=== PATIENT | male | born 1965 | race Caucasian/White ===

== ENCOUNTER 2016-07-16 00:27 | Emergency (ER) | payer SELFPAY ==
[2016-07-16] MEDS ORDERED: SODIUM CHLORIDE 0.9% (FLUSH) 10 ML SYG IV PRN (00:43)
[2016-07-16] MEDS ORDERED: SODIUM CHLORIDE 0.9% 1000ML 1,000 ML IVS PRN (00:43)
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
[2016-07-16] MEDS ORDERED: chlordiazePOXIDE HCL 25 MG CAP PO ONE ×2 (01:31→01:42)
[2016-07-16] MEDS ORDERED: POTASSIUM CHLORIDE 20 MEQ TAB PO ONE (01:35)
[2016-07-16 02:47] VITALS: BP 115/66; TEMP 98.5; O2SAT 96
== END 2016-07-16 02:47 | disposition home or self-care (01) ==
LOC: ER 00:27
DX: F10.232 Alcohol dependence with withdrawal with perceptual disturbance (principal); E87.6 Hypokalemia; E87.1 Hypo-osmolality and hyponatremia; I10 Essential (primary) hypertension; Z87.891 Personal history of nicotine dependence; Z79.899 Other long term (current) drug therapy
CPT/HCPCS: 36415; 80053; 80307; 80320; 81001; 85025; 87086; J2060; J7030

== ENCOUNTER 2017-01-01 22:09 | Emergency (ER) | payer SELFPAY ==
[2017-01-01] MEDS ORDERED: SODIUM CHLORIDE 0.9% 1000ML 1,000 ML IVS ONE (22:41)
--- NOTE | 2017-01-01 22:45 | ED.PDOC ---
History of Present Illness - General Chief Complaint: Trauma Stated Complaint: fall at work, head injury Time Seen by Provider: 01/01/17 22:40 Source: patient Exam Limitations: no limitations Additional Information: PT STATES HE TRIPPED AT WORK HOWEVER IS A KNOWN ALCOHOLIC AND STOPPED DRINKING 3 DAYS AGO. - History of Present Illness Timing/Duration: other - [employer] Severity: moderate Improving Factors: nothing Worsening Factors: nothing Associated Symptoms: other - PT HAS HAD ONE SZ PRIOR AFTER STOPPING ETOH Allergies/Adverse Reactions: Allergies NO KNOWN ALLERGY Allergy (Verified 01/01/17 22:20) Home Medications: Ambulatory Orders Hydrochlorothiazide 25 mg PO DAILY 07/16/16 LORazepam [Ativan] 1 mg PO BID PRN #12 tab 07/16/16 Potassium Chloride [K-Tab] 20 meq PO DAILY #5 tab 07/16/16 chlordiazePOXIDE HCL [Librium] 50 mg PO TID #30 cap 07/16/16 Review of Systems - Review of Systems Constitutional: Denies: chills, fever EENTM: States: other - SWELLING TO HEAD. Denies: blurred vision, ear discharge Respiratory: Denies: cough, short of breath Cardiology: Denies: chest pain, palpitations Gastrointestinal/Abdominal: Denies: abdominal pain, nausea, vomiting Genitourinary: States: other - URINARY INCONTINENCE Musculoskeletal: Denies: back pain, neck pain Skin: States: other - ABRASION, SWELLING Neurological: States: headache, seizure. Denies: numbness, weakness Endocrine: States: no symptoms reported Hematologic/Lymphatic: States: no symptoms reported Past Medical History (General) - Patient Medical History Hx Seizures: Yes Hx Stroke: No Hx Dementia: No Hx Asthma: No Hx of COPD: No Hx Cardiac Disorders: No Hx Congestive Heart Failure: No Hx Pacemaker: No Hx Hypertension: Yes Hx Thyroid Disease: No Hx Diabetes: No Hx Gastroesophageal Reflux: No Hx Renal Disease: No Hx Cancer: No Hx of HIV: No Hx Hepatitis C: No Hx MRSA: No - Vaccination History Hx Tetanus, Diphtheria Vaccination: No Hx Influenza Vaccination: No Hx Pneumococcal Vaccination: No - Social History Hx Tobacco Use: Yes Hx Chewing Tobacco Use: No Hx Alcohol Use: Yes Hx Substance Use: Yes Hx Substance Use Treatment: No Hx Depression: No Hx Physical Abuse: No Hx Emotional Abuse: No Hx Suspected Abuse: No Family Medical History - Family History Mother Family History: Unknown Hx Family Hypertension: Yes Hx Family Diabetes: Yes Physical Exam - Physical Exam General Appearance: Alert, Comfortable, No apparent distress Eye Exam: bilateral normal Ears, Nose, Throat: hearing grossly normal, normal ENT inspection, normal pharynx, other - SWELLING, R POST OCCIPUT, ABRASION, MILD OOZING, NO LACERATION Neck: non-tender, full range of motion, supple Respiratory: lungs clear, normal breath sounds Cardiovascular/Chest: no murmur, tachycardia Gastrointestinal/Abdominal: normal bowel sounds, non tender, soft, no organomegaly Back Exam: normal inspection, no CVA tenderness Extremity: normal range of motion, non-tender, normal inspection, no pedal edema Skin Exam: normal color, warm/dry Lymphatic: no adenopathy Progress - EKG/XRAY/CT CT: HEAD/C-SPINE SASCHA Departure - Departure Clinical Impression: Alcoholic, Hypokalemia, Seizure Hematoma of scalp Qualifiers: Encounter type: initial encounter Qualified Code(s): S00.03XA - Contusion of scalp, initial encounter Time of Disposition: 00:22 Disposition: Discharge to Home or Self Care Condition: Fair Departure Forms: ED Discharge - Pt. Copy, Patient Portal Self Enrollment Instructions: DI for Trauma, DI for Seizure (Not Epilepsy/Seizure Disorder), Head Injury (Alternative Therapy) Referrals: Sandip Carrillo MD [Primary Care Provider] - 1-2 Weeks Home Medications: Ambulatory Orders Hydrochlorothiazide 25 mg PO DAILY 07/16/16 LORazepam [Ativan] 1 mg PO BID PRN #12 tab 07/16/16 Potassium Chloride [K-Tab] 20 meq PO DAILY #5 tab 07/16/16 chlordiazePOXIDE HCL [Librium] 50 mg PO TID #30 cap 07/16/16
--- NOTE | 2017-01-01 23:38 | CT ---
EXAM DESCRIPTION: Head CLINICAL HISTORY: HEAD TRAUMA COMPARISON: None available TECHNIQUE: Axial CT of the head obtained from the skull apex to the skull base without contrast. FINDINGS: No acute intracranial hemorrhage identified. No mass, mass effect, shift of the midline, abnormal extra-axial fluid collection or CT evidence of acute ischemic change identified. The ventricular system is unremarkable. No acute abnormalities of the supratentorial white matter, basal ganglia, cerebellum, or brainstem. Minimal fluid in the right mastoid air cells. Paranasal sinuses are clear.. Contusion in the right posterior scalp subcutaneous soft tissues. No skull fracture identified. Visualized orbits and globes are unremarkable. DLP: 870.72 mGy-cm IMPRESSION: 1. No acute intracranial abnormality by CT criteria. 2. Minimal fluid in the right mastoid air cells may represent inflammatory or serous debris. This exam was performed according to our departmental dose-optimization program, which includes automated exposure control, adjustment of the mA and/or kV according to patient size and/or use of iterative reconstruction technique. Electronically signed by: Ebenezer Wilkerson 01/01/2017 11:37 PM CDT
--- NOTE | 2017-01-01 23:57 | CT ---
EXAM DESCRIPTION: Cervical Spine CLINICAL HISTORY: Fall at work. Right scalp hematoma. COMPARISON: None available TECHNIQUE: Axial CT of the cervical spine obtained without contrast. FINDINGS: Alignment of the cervical spine is maintained without evidence of subluxation. The atlantoaxial, atlantodental, and occipitoatlantal intervals are preserved. No fracture identified. Vertebral body height preserved. Prevertebral soft tissues are unremarkable. Mild to moderate multilevel loss of intervertebral disc height at C3/4 through C6/7, most severe at C5/6. Endplate spondylosis, uncovertebral spurring, and facet arthropathy, most severe C5/6. Mild bilateral neural foraminal narrowing at this level. No osseous central canal narrowing. Visualized skull base is intact. No fracture of the visualized facial bones. Minimal fluid in the right mastoid air cells. Visualized paranasal sinuses are well aerated. Visualized thyroid is unremarkable. No cervical lymphadenopathy. No pneumothorax in the visualized lung apices. Atherosclerotic calcification of the carotid arteries. DLP: 379.13 mGy-cm IMPRESSION: 1. No acute fracture or subluxation of the cervical spine. This exam was performed according to our departmental dose-optimization program, which includes automated exposure control, adjustment of the mA and/or kV according to patient size and/or use of iterative reconstruction technique. Electronically signed by: Ebenezer Wilkerson 01/01/2017 11:56 PM CDT
[2017-01-02] MEDS ORDERED: POTASSIUM CHLORIDE 20 MEQ TAB PO ONE (00:17)
[2017-01-02 01:15] VITALS: O2SAT 98
[2017-01-02 01:20] VITALS: BP 135/92; TEMP 97.8
== END 2017-01-02 01:10 | disposition home or self-care (01) ==
LOC: ER 22:09
DX: S00.03XA Contusion of scalp, initial encounter (principal); R56.9 Unspecified convulsions; E87.6 Hypokalemia; F10.20 Alcohol dependence, uncomplicated; Z87.891 Personal history of nicotine dependence; I10 Essential (primary) hypertension; W01.0XXA Fall on same level from slipping, tripping and stumbling without subsequent striking against object, initial encounter; Y92.89 Other specified places as the place of occurrence of the external cause; Y99.0 Civilian activity done for income or pay
CPT/HCPCS: 36415; 70450; 72125; 80053; 85025; J7030

== ENCOUNTER 2017-02-04 22:15 | Emergency (ER) | payer SELFPAY ==
[2017-02-04 22:44] VITALS: TEMP 98.8
--- NOTE | 2017-02-04 23:13 | ED.PDOC ---
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 SCREENING EXAM NEEDED PT WAS CHECKED INTO ED. NO HX INJURY - History of Present Illness Allergies/Adverse Reactions: Allergies NO KNOWN ALLERGY Allergy (Verified 02/04/17 22:45) Home Medications: Ambulatory Orders Hydrochlorothiazide 25 mg PO DAILY 07/16/16 LORazepam [Ativan] 1 mg PO BID PRN #12 tab 07/16/16 Potassium Chloride [K-Tab] 20 meq PO DAILY #5 tab 07/16/16 chlordiazePOXIDE HCL [Librium] 50 mg PO TID #30 cap 07/16/16 Potassium Chloride [K-Tab] 20 meq PO DAILY #10 tab 01/02/17 chlordiazePOXIDE HCL [Librium] 25 mg PO QID PRN #20 cap 01/02/17 Review of Systems - Review of Systems Constitutional: States: no symptoms reported Respiratory: States: no symptoms reported Gastrointestinal/Abdominal: Denies: nausea, vomiting Neurological: States: no symptoms reported Past Medical History (General) - Patient Medical History Hx Seizures: Yes Hx Stroke: No Hx Dementia: No Hx Asthma: No Hx of COPD: No Hx Cardiac Disorders: No Hx Congestive Heart Failure: No Hx Pacemaker: No Hx Hypertension: Yes Hx Thyroid Disease: No Hx Diabetes: No Hx Gastroesophageal Reflux: No Hx Renal Disease: No Hx Cancer: No Hx of HIV: No Hx Hepatitis C: No Hx MRSA: No Surgical History: no surgical history - Vaccination History Hx Tetanus, Diphtheria Vaccination: No Hx Influenza Vaccination: No Hx Pneumococcal Vaccination: No - Social History Hx Tobacco Use: Yes Hx Chewing Tobacco Use: No Hx Alcohol Use: Yes Hx Substance Use: Yes Hx Substance Use Treatment: No Hx Depression: No Hx Physical Abuse: No Hx Emotional Abuse: No Hx Suspected Abuse: No Family Medical History - Family History Mother Family History: Unknown Hx Family Hypertension: Yes Hx Family Diabetes: Yes Physical Exam - Physical Exam General Appearance: Alert, No apparent distress Eye Exam: bilateral normal Ears, Nose, Throat: hearing grossly normal, other - OLD ABRASION R POST OCCIPUT Neck: non-tender, full range of motion, supple Respiratory: lungs clear, normal breath sounds Cardiovascular/Chest: regular rate, rhythm, no murmur Gastrointestinal/Abdominal: non tender, soft Extremity: normal range of motion, non-tender Neurologic: alert, normal mood/affect Skin Exam: normal color, warm/dry Lymphatic: no adenopathy Departure - Departure Clinical Impression: Well adult exam Time of Disposition: 00:24 Disposition: Discharge to Home or Self Care Condition: Excellent Departure Forms: ED Discharge - Pt. Copy, Patient Portal Self Enrollment Instructions: High Blood Pressure Referrals: Sandip Carrillo MD [Primary Care Provider] - 1-2 Weeks Home Medications: Ambulatory Orders Hydrochlorothiazide 25 mg PO DAILY 07/16/16 LORazepam [Ativan] 1 mg PO BID PRN #12 tab 07/16/16 Potassium Chloride [K-Tab] 20 meq PO DAILY #5 tab 07/16/16 chlordiazePOXIDE HCL [Librium] 50 mg PO TID #30 cap 07/16/16 Potassium Chloride [K-Tab] 20 meq PO DAILY #10 tab 01/02/17 chlordiazePOXIDE HCL [Librium] 25 mg PO QID PRN #20 cap 01/02/17
[2017-02-05 00:29] VITALS: BP 159/94; O2SAT 98
== END 2017-02-05 00:30 | disposition home or self-care (01) ==
LOC: ER 22:15
DX: Z04.8 Encounter for examination and observation for other specified reasons (principal)

== ENCOUNTER 2018-05-13 15:16 | Emergency (ER) | payer SELFPAY ==
--- NOTE | 2018-05-13 15:57 | ED.PDOC ---
History of Present Illness - General Chief Complaint: Drug or Alcohol Abuse Stated Complaint: left sided back pain,alcohol withdrawal Time Seen by Provider: 05/13/18 15:55 Source: patient Exam Limitations: no limitations - History of Present Illness Initial Comments: Darion Esquivel 53 y/o male came to ER with dull left flank pain and nauseous for a week today and also has been shaky today.Has history of chronic alcoholism.Had been to detox in the past.His last alcoholic drink was this am mostly vodka.No diarrhea,fever,hematuria or vomiting,or constipation. Timing/Duration: other - see hpi Severity: moderate Episode Description: flank pain Associated Symptoms: denies symptoms Allergies/Adverse Reactions: Allergies NO KNOWN ALLERGY Allergy (Verified 02/04/17 22:45) Home Medications: Ambulatory Orders Hydrochlorothiazide 12.5 mg PO DAILY 07/16/16 Baclofen 20 mg PO BID #30 tab 05/13/18 DiphenhydrAMINE HCL [Benadryl] 75 mg PO BEDTIME 05/13/18 cloNIDine HCL [Catapres] 0.1 mg PO Q8HRS #30 tab 05/13/18 Review of Systems - Review of Systems Constitutional: States: no symptoms reported EENTM: States: no symptoms reported Respiratory: States: no symptoms reported Cardiology: States: no symptoms reported Gastrointestinal/Abdominal: States: see HPI, other - flank pain Genitourinary: States: no symptoms reported Skin: States: no symptoms reported All other Systems: Reviewed and Negative, No Change from Baseline Past Medical History (General) - Patient Medical History Hx Seizures: Yes Hx Stroke: No Hx Dementia: No Hx Asthma: No Hx of COPD: No Hx Cardiac Disorders: No Hx Congestive Heart Failure: No Hx Pacemaker: No Hx Hypertension: Yes Hx Thyroid Disease: No Hx Diabetes: No Hx Gastroesophageal Reflux: No Hx Renal Disease: No Hx Cancer: No Hx of HIV: No Hx Hepatitis C: No Hx MRSA: No Surgical History: other - right hand - Vaccination History Hx Tetanus, Diphtheria Vaccination: No Hx Influenza Vaccination: No Hx Pneumococcal Vaccination: Yes - Social History Hx Tobacco Use: Yes Hx Chewing Tobacco Use: No Hx Alcohol Use: Yes Hx Substance Use: Yes Hx Substance Use Treatment: No Hx Depression: No Hx Physical Abuse: No Hx Emotional Abuse: No Hx Suspected Abuse: No Family Medical History - Family History Mother Family History: Unknown Hx Family Hypertension: Yes Hx Family Diabetes: Yes Hx Family;Other: alcoholism-several family members Physical Exam - Physical Exam General Appearance: Alert, Comfortable, No apparent distress Eyes, Ears, Nose, Throat Exam: PERRL/EOMI, normal ENT inspection, pharynx normal Neck: non-tender, supple, normal inspection Respiratory: chest non-tender, lungs clear, normal breath sounds, no respiratory distress Cardiovascular/Chest: normal peripheral pulses, regular rate, rhythm, no murmur Peripheral Pulses: radial,right: 2+, radial,left: 2+ Gastrointestinal/Abdominal: non tender, soft, no organomegaly Extremities Exam: non-tender, no evidence of injury, no edema Neurological: alert, calm, oriented x 3 Appearance: appropriate appearance, appropriate insight, neat, no memory impairment Behavior/Eye Contact/Speech: cooperative, good eye contact, normal speech Thoughts/Hallucinations: normal thought pattern Skin Exam: normal color, warm/dry Progress - Progress Progress: 05/13/18 16:29 Vital Signs - 24 hr 05/13/18 15:37 Temperature 97.4 F L Pulse Rate [ 132 H Right Brachial] Respiratory 20 Rate Blood Pressure 169/117 [Right Arm] O2 Sat by Pulse 98 Oximetry - Results/Orders Results/Orders: 05/13/18 15:59 chlordiazePOXIDE HCL [Librium] 25 mg PO Q6H PRN Laboratory Results - last 24 hr 05/13/18 05/13/18 05/13/18 15:51 16:00 18:27 WBC 7.0 RBC 4.58 L Hgb 15.6 Hct 46.5 MCV 101.6 H MCH 34.2 H MCHC 33.6 RDW 15.2 H Plt Count 232 MPV 8.0 Absolute Neuts (auto) 5.30 Absolute Lymphs (auto) 1.30 Absolute Monos (auto) 0.40 Absolute Eos (auto) 0.00 Absolute Basos (auto) 0.00 Neutrophils % 74.6 Lymphocytes % 19.2 L Monocytes % 5.6 Eosinophils % 0.0 L Basophils % 0.6 PT 10.5 INR 1.05 PTT (SP) 26.1 Sodium 128 L Potassium 3.9 Chloride 89 L Carbon Dioxide 11 L* Anion Gap 31.9 H BUN 19 H Creatinine 0.94 BUN/Creatinine Ratio 20.2 H Random Glucose 110 H Serum Osmolality 260.0 L Calcium 9.2 Magnesium 1.6 L Total Bilirubin 1.6 H Direct Bilirubin 0.3 H Indirect Bilirubin 1.3 H AST 63 H ALT 45 Alkaline Phosphatase 78 Creatine Kinase 86 CK-MB (CK-2) 3.3 CK-MB (CK-2) % 3.84 H Troponin I < 0.02 Serum Total Protein 9.2 H Albumin 5.0 Urine Color Yellow Urine Appearance Clear Urine pH 5.5 Ur Specific Rhodes >= 1.030 Urine Protein 100 H Urine Glucose (UA) Negative Urine Ketones >=160 Urine Blood Trace-intact H Urine Nitrite Negative Urine Bilirubin Negative Urine Urobilinogen 0.2 Ur Leukocyte Esterase Negative Urine RBC 0-1 Urine WBC 0-1 Ur Epithelial Cells 0-1 Amorphous Sediment 1+ Urine Bacteria 0 Fine Granular Casts 0-1 Coarse Granular Casts 0-1 Ethyl Alcohol 123.10 H* - EKG/XRAY/CT CT Ordered: Yes - abd/p-cholelithiasis,hepatic steatosis,deg, changes L-spine mostly L4-L5 Departure - Departure Clinical Impression: Alcoholism, chronic, Alcoholic liver disease, unspecified, Nonalcoholic steatohepatitis (BROWN), Electrolyte imbalance, Left flank pain Time of Disposition: 19:15 Disposition: Discharge to Home or Self Care Condition: Fair Departure Forms: ED Discharge - Pt. Copy, Patient Portal Self Enrollment Instructions: DI for Alcohol Abuse and Alcoholism, Nonalcoholic Fatty Liver Disease (DC), Nonalcoholic Steatohepatitis (BROWN), Alcohol Abuse and Alcoholism (DC) Referrals: Sandip Carrillo MD [Primary Care Provider] - 1-2 Weeks Prescriptions: cloNIDine HCL [Catapres] 0.1 mg PO Q8HRS #30 tab Baclofen 20 mg PO BID #30 tab Home Medications: Ambulatory Orders Hydrochlorothiazide 12.5 mg PO DAILY 07/16/16 Baclofen 20 mg PO BID #30 tab 05/13/18 DiphenhydrAMINE HCL [Benadryl] 75 mg PO BEDTIME 05/13/18 cloNIDine HCL [Catapres] 0.1 mg PO Q8HRS #30 tab 05/13/18 Additional Instructions: Also need to take over the counter Multivitamins one tablet daily,Vitamin E- 400mg daily,Magnesium Oxide one tablet daily;Follow up with your primary Md 19 May 2018 for recheck;Return to ER as needed
[2018-05-13] MEDS ORDERED: MULTIPLE VITAMIN INJ 10 ML, THIAMINE HCL INJ 100 MG in SODIUM CHLORIDE 0.9% 1000ML 1,00... IVS ONE (15:58)
[2018-05-13] MEDS ORDERED: chlordiazePOXIDE HCL 5 MG CAP PO PRN (15:59)
[2018-05-13] MEDS ORDERED: cloNIDine HCL 0.1 MG TAB PO ONE (15:59)
[2018-05-13] MEDS ORDERED: BACLOFEN 10 MG TAB PO ONE (16:11)
[2018-05-13] MEDS ORDERED: SODIUM CHLORIDE 0.9% 1000ML 1,000 ML ONE (16:17)
[2018-05-13] MEDS ORDERED: THIAMINE HCL INJ 100 MG/ML VIAL ONE (16:17)
[2018-05-13] MEDS ORDERED: MULTIPLE VITAMIN 10 ML VIAL ONE (16:18)
--- NOTE | 2018-05-13 16:53 | CT ---
EXAM DESCRIPTION: Abdomen/Pelvis w/o Contrast CLINICAL HISTORY: flank pain left COMPARISON: None. TECHNIQUE: CT of the abdomen and pelvis was performed without contrast. Multiple axial images and multiplanar reconstructions were generated. This exam was performed according to our departmental dose-optimization program, which includes automated exposure control, adjustment of the mA and/or kV according to patient size and/or use of iterative reconstruction technique. FINDINGS: Lung bases: Mild atelectasis or scarring in the right lung base. No pleural effusion. Solid organs: No hydronephrosis, hydroureter, or nephrolithiasis. Evaluation of the solid organs is limited due to lack of IV contrast. Cholelithiasis. Diffuse hepatic steatosis. The spleen, pancreas, kidneys, and adrenal glands are unremarkable on this noncontrast exam. Gastrointestinal: The stomach, small intestine, and large intestine are unremarkable. The appendix is normal. No free fluid or free air. Vascular: Moderate atherosclerosis in the abdominal aorta and its major branches. Lymph nodes: No pathologically enlarged lymph nodes are present by CT size criteria. Musculoskeletal and soft tissues: No destructive osseous lesions are present. Degenerative changes in the lumbar spine which are most advanced at L4-L5. Urinary bladder and pelvic organs: The urinary bladder is normal. Heterogeneous calcifications in the prostate. IMPRESSION: 1. No obstructive uropathy. No acute abdominal or pelvic noncontrast CT findings. 2. Cholelithiasis. 3. Hepatic steatosis. 4. Other findings as above. Electronically signed by: Jim Blackman MD 05/13/2018 4:50 PM CDT
[2018-05-13 17:24] VITALS: O2SAT 97
[2018-05-13] MEDS ORDERED: MAGNESIUM SULFATE PREMIX 2GM 2 GM in PREMIX BAG 1 BAG IVPB ONE (17:52)
[2018-05-13] MEDS ORDERED: MAGNESIUM SULFATE PREMIX 2GM 50 ML IVPB ONE (18:00)
[2018-05-13 19:47] VITALS: BP 184/99; TEMP 98.1
== END 2018-05-13 19:45 | disposition home or self-care (01) ==
LOC: ER 15:16
DX: K70.9 Alcoholic liver disease, unspecified (principal); K75.81 Nonalcoholic steatohepatitis (NASH); E87.8 Other disorders of electrolyte and fluid balance, not elsewhere classified; K80.20 Calculus of gallbladder without cholecystitis without obstruction; M47.817 Spondylosis without myelopathy or radiculopathy, lumbosacral region; I10 Essential (primary) hypertension; R56.9 Unspecified convulsions; Z87.891 Personal history of nicotine dependence; Z79.899 Other long term (current) drug therapy
CPT/HCPCS: 36415; 74176; 80048; 80076; 80320; 81001; 82550; 82553; 84484; 85025; 85610; 85730; J3411; J3475; J7030

== ENCOUNTER 2018-07-15 22:27 | Emergency (ER) | payer SELFPAY ==
[2018-07-15] MEDS ORDERED: IPRATROPIUM/ALBUTEROL 3 ML VIAL NEB ONE ×2 (22:50→23:52)
--- NOTE | 2018-07-15 22:53 | ED.PDOC ---
History of Present Illness - General Chief Complaint: Respiratory Problem Stated Complaint: trouble breathing, short of breath Time Seen by Provider: 07/15/18 22:47 Source: patient - History of Present Illness Initial Comments: Pt has had cough with SOB x 1 month. No hx of COPD or asthma hx. Severity: severe Activities at Onset: none Possible Cause: no prior episodes Improving Factors: nothing Worsening Factors: movement Associated Symptoms: cough Respiratory Risk Factors: no cause identified Allergies/Adverse Reactions: Allergies NO KNOWN ALLERGY Allergy (Verified 02/04/17 22:45) Home Medications: Ambulatory Orders Hydrochlorothiazide 12.5 mg PO DAILY 07/16/16 Baclofen 20 mg PO BID #30 tab 05/13/18 DiphenhydrAMINE HCL [Benadryl] 75 mg PO BEDTIME 05/13/18 cloNIDine HCL [Catapres] 0.1 mg PO Q8HRS #30 tab 05/13/18 Albuterol Inhaler [Ventolin Hfa Inhaler] 2 puff INH Q6HR PRN #1 inh 07/15/18 Levofloxacin [Levaquin] 750 mg PO DAILY #5 tablet 07/15/18 Prednisone [Deltasone] 20 mg PO BID #10 tab 07/15/18 Review of Systems - Review of Systems Constitutional: Denies: chills, fever EENTM: Denies: nose congestion, throat pain Respiratory: States: cough, short of breath, wheezing Cardiology: Denies: chest pain, edema Gastrointestinal/Abdominal: Denies: abdominal pain, nausea Musculoskeletal: States: no symptoms reported Skin: States: no symptoms reported Neurological: States: no symptoms reported Endocrine: States: no symptoms reported Past Medical History (General) - Patient Medical History Hx Seizures: Yes Hx Stroke: No Hx Dementia: No Hx Asthma: No Hx of COPD: No Hx Cardiac Disorders: No Hx Congestive Heart Failure: No Hx Pacemaker: No Hx Hypertension: Yes Hx Thyroid Disease: No Hx Diabetes: No Hx Gastroesophageal Reflux: No Hx Renal Disease: No Hx Cancer: No Hx of HIV: No Hx Hepatitis C: No Hx MRSA: No - Vaccination History Hx Tetanus, Diphtheria Vaccination: No Hx Influenza Vaccination: No Hx Pneumococcal Vaccination: Yes - Social History Hx Tobacco Use: Yes Hx Chewing Tobacco Use: No Hx Alcohol Use: Yes Hx Substance Use: Yes Hx Substance Use Treatment: No Hx Depression: No Hx Physical Abuse: No Hx Emotional Abuse: No Hx Suspected Abuse: No Family Medical History - Family History Mother Family History: Unknown Hx Family Hypertension: Yes Hx Family Diabetes: Yes Hx Family;Other: alcoholism-several family members Physical Exam - Physical Exam General Appearance: Alert, Anxious, Obvious distress Eyes, Ears, Nose, Throat Exam: TMs normal, pharynx normal Neck: non-tender, full range of motion Respiratory: decreased breath sounds, wheezing Cardiovascular/Chest: no edema, tachycardia Gastrointestinal/Abdominal: normal bowel sounds, non tender, soft Extremity: normal range of motion, normal inspection, no pedal edema Neurologic: alert, normal mood/affect, oriented x 3 Skin Exam: normal color, warm/dry Departure - Departure Clinical Impression: Bronchospasm Pneumonia Qualifiers: Pneumonia type: due to unspecified organism Laterality: right Lung location: middle lobe of lung Qualified Code(s): J18.1 - Lobar pneumonia, unspecified organism Disposition: Discharge to Home or Self Care Condition: Fair Departure Forms: ED Discharge - Pt. Copy, Patient Portal Self Enrollment Referrals: Sandip Carrillo MD [Primary Care Provider] - 1-2 Weeks Prescriptions: Albuterol Inhaler [Ventolin Hfa Inhaler] 2 puff INH Q6HR PRN #1 inh PRN Reason: Wheezing Levofloxacin [Levaquin] 750 mg PO DAILY #5 tablet Prednisone [Deltasone] 20 mg PO BID #10 tab Home Medications: Ambulatory Orders Hydrochlorothiazide 12.5 mg PO DAILY 07/16/16 Baclofen 20 mg PO BID #30 tab 05/13/18 DiphenhydrAMINE HCL [Benadryl] 75 mg PO BEDTIME 05/13/18 cloNIDine HCL [Catapres] 0.1 mg PO Q8HRS #30 tab 05/13/18 Albuterol Inhaler [Ventolin Hfa Inhaler] 2 puff INH Q6HR PRN #1 inh 07/15/18 Levofloxacin [Levaquin] 750 mg PO DAILY #5 tablet 07/15/18 Prednisone [Deltasone] 20 mg PO BID #10 tab 07/15/18
--- NOTE | 2018-07-15 23:02 | RAD ---
EXAM DESCRIPTION: XR Chest,1 View CLINICAL HISTORY: 53 years Male sob TECHNIQUE: One view of the chest. COMPARISON: Correlation is made with the prior abdominal CT dated 05/13/2018. FINDINGS: New since the prior exam is a right medial basilar airspace infiltrate. Again seen is scarring at the right lung base. Difficult to exclude a trace right basilar pleural effusion. The left lung is clear. No pneumothorax on either side. The cardiomediastinal silhouette and central pulmonary vasculature are normal. No acute osseous abnormalities. IMPRESSION: Right medial basal airspace infiltrate concerning for infection. Possible trace right pleural effusion. Electronically signed by: Stephanie Valentino MD 07/15/2018 10:59 PM CDT
[2018-07-15] MEDS ORDERED: cefTRIAXone SODIUM 1 GM in SODIUM CHL 0.9% 50ML MIN-BAG+ 50 ML IVPB ONE (23:52)
[2018-07-15] MEDS ORDERED: methylPREDNISolone SODIUM SUC 125 MG/2 ML VIAL IV ONE (23:54)
[2018-07-16] MEDS ORDERED: cefTRIAXone SODIUM 1 GM VIAL ONE (00:06)
[2018-07-16] MEDS ORDERED: SODIUM CHL 0.9% 50ML MIN-BAG+ 50 ML IVPB ONE (00:06)
[2018-07-16 01:37] VITALS: BP 140/95; TEMP 99.3; O2SAT 92
== END 2018-07-16 01:03 | disposition home or self-care (01) ==
LOC: ER 22:27
DX: J18.1 Lobar pneumonia, unspecified organism (principal); J98.01 Acute bronchospasm; R56.9 Unspecified convulsions; I10 Essential (primary) hypertension; Z87.891 Personal history of nicotine dependence; Z79.899 Other long term (current) drug therapy
CPT/HCPCS: 36415; 71045; 80053; 83880; 85025; 94640; J0696; J2930; J7050; J7620